=== PATIENT | male | born 1965 | race Caucasian/White ===

== ENCOUNTER 2019-06-13 23:39 | Emergency (ER) | payer OTHER, SELFPAY ==
[2019-06-13 23:44] VITALS: BP 152/87; PULSE 66; RESP 16; TEMP 36.6; O2SAT 98; BMI 36.5
--- NOTE | 2019-06-13 23:45 | ED.RN ---
NO OLD EKGS IN MUSE
--- NOTE | 2019-06-14 | EKG12_ITS ---
Test Reason : CP Blood Pressure : / mmHG Vent. Rate : 063 BPM Atrial Rate : 063 BPM P-R Int : 152 ms QRS Dur : 076 ms QT Int : 390 ms P-R-T Axes : 066 009 052 degrees QTc Int : 399 ms Normal sinus rhythm with sinus arrhythmia Septal infarct , age undetermined Abnormal ECG Confirmed by GOSIA TREJO, TATYANA ([id number]), metropolitan editor JASWANT HORVATH ([id number]) on 06/15/2019 2:41:05 PM Referred By: KAREN Confirmed By:TATYANA ELISE MD
--- NOTE | 2019-06-14 00:01 | ED.VIS.GEN ---
History of Present Illness Chief Complaint: Chest Pain Informant: Patient Narrative: Presents with chest pain. He stated that over the last 2 hours she has had some pain in the center of his chest. It was moderate in severity at home. No radiation. He had this pain yesterday and the night before as well that lasted a couple hours and went away. Tonight it has not gone away. He stated he felt some pain in his right side area yesterday and the day before and then it would go into his chest. Tonight he does not feel it on his side. He does still have his gallbladder. No history of pancreatitis. No previous abdominal surgeries. No home treatment. Patient stated he has a history of borderline hypertension and family history of early coronary artery disease. He is on no medications. He had a heart cath 2 years ago that showed no abnormalities. At that time he was having similar chest pains to what he is having today. Patient denies any PE risk factors - Past Medical History (1) Chest pain Status: Acute (2) Daytime somnolence Status: Acute (3) Puncture wound of right foot without foreign body Status: Acute (4) Snoring Status: Acute (5) History of left heart catheterization Status: Chronic Past Medical History - Allergies and Home Meds Allergies/Adverse Reactions: Allergies shellfish derived Allergy (Verified 06/13/19 23:44) Shortness of breath sulfamethoxazole [From Bactrim] Allergy (Verified 06/13/19 23:44) itching trimethoprim [From Bactrim] Allergy (Verified 06/13/19 23:44) itching Primary Care Physician: Regan James III, MD [Primary Care Provider] - Prior records reviewed: Yes Past Medical History: - - See problem list Surgical History: noncontributory Smoking Status: Never smoker Alcohol: None Drugs: None Review of Systems General: Denies: Chills, Fever, Sweats Eyes: Denies: Visual changes - bilaterally, Diplopia ENT: Denies: Rhinorrhea, Sore throat Cardiovascular: Reports: Chest pain. Denies: Palpitations Respiratory: Denies: Dyspnea, Cough, Dyspnea on exertion Gastrointestinal: Denies: Abdominal pain, Nausea, Vomiting, Diarrhea, Melena, Hematochezia Genitourinary: Denies: Dysuria, Hematuria, Frequency Musculoskeletal: Denies: Back pain, Extremity Pain Skin: Denies: Rash, Wounds Neurological: Denies: Headache, Weakness, Numbness Physical Exam Vital Signs/Narrative: Vital Signs Temp Pulse Resp BP Pulse Ox 06/13/19 23:44 97.8 F 66 16 152/87 H 98 General: Well nourished, Well developed, No Acute Distress Head: Normocephalic, Atraumatic Eyes: Perrl, EOMI ENT: Moist mucous membranes, No rhinorrhea Neck: Supple, Nontender Cardiovascular: Regular rate, Regular rhythm, No murmurs Respiratory: No distress, CTA bilaterally, Chest nontender Abdomen: Soft, Nontender, Nondistended, Normal bowel sounds Back: Nontender, Normal Inspection Extremities: Nontender, No edema Skin: Normal color, No rash Neurological: Alert, Oriented x3, Cranial nerves II-XII grossly intact, Normal Strength, Normal Sensation Psychological: Normal affect, Normal Mood Diagnostic/Tx/Re-eval - Medical Decision Making G shows sinus rhythm at a rate of 63. Q wave V2 noted. No STEMI. Lab work obtained and is unremarkable including CBC metabolic panel liver function test lipase troponin. Patient felt much better after treatment with a dose of morphine and resting comfortably. At this time he had a heart cath almost 2 years ago that was clean. I doubt this is coronary related. I do not think he has a PE or dissection. This could be gallbladder related. His liver function test however normal. I offered him a CT abdomen pelvis we like to hold off and follow-up with his family doctor for possible outpatient ultrasound of his gallbladder. I think this is reasonable. Given a dose of Percocet for home. I do not feel he needs admission ED Disposition - Plan for ED Patient: Disposition: Home or Assisted Living Diagnosis: Chest pain at rest Instructions: CHEST PAIN, NonCardiac Prescriptions: Oxycodone HCl/Acetaminophen [Percocet 5/325] 1 - 2 tab PO Q6H PRN PRN 3 Days #12 tab PRN Reason: Pain Prescription Printed Referrals: Regan James III, MD [Primary Care Provider] -
--- NOTE | 2019-06-14 00:10 | RAD_ITS ---
STUDY: X-RAY CHEST REASON FOR EXAM: Male, 53 years old. Chest pain. TECHNIQUE: 2 view chest. COMPARISON: None. FINDINGS: No apparent pneumothorax, pneumonia, pleural effusion, or edema. Cardiac silhouette, leti and mediastinal contours are within normal limits. No acute osseous abnormality. No evidence of free air under the diaphragm. RAD/Chest PA and Lateral IMPRESSION: Negative chest radiograph. Electronically Signed: Yungja Damon, at 0:37 EST Tel , Service support ,
[2019-06-14 00:11] LABS: Absolute Lymphocyte Count 2.51 X10^3/uL (0.83-4.51); Absolute Neutrophil Count 5.6 X10^3/uL (2.0-7.7); Basophil# 0.05 X10^3/uL; Basophil% 0.5 % (0-1); Eosinophil# 0.21 X10^3/uL; Eosinophils% 2.3 % (0-5); Hematocrit 44.4 % (40-54); Hemoglobin 15.1 g/dL (13.0-16.5); Lymphocyte # 2.51 X10^3/ul (4.0); Lymphocyte % 26.9 % (19-41); Mean Corpuscular Hgb 30.1 pg (27.0-32.0); Mean Corpuscular Volume 88.6 fL (80-94); Mean Platelet Vol. 8.1 fl (6.2-12.0); Monocyte# 0.92 X10^3/uL; Monocyte% 9.9 % (0-10); NRBC Flagged by Analyzer 0 % (0-5); Platelet Count 285 K/mm3 (150-450); RBC Distribution Width CV 11.8 % (11.6-14.6); RBC Distribution Width SD 37.9 fl (35.1-43.9); Red Blood Count 5.01 M/mm3 (4.6-6.2); White Blood Count 9.3 K/mm3 (4.4-11.0)
[2019-06-14] MEDS: Morphine 4 MG/ML Syringe IV (00:20)
[2019-06-14] MEDS: Aspirin 81 MG TAB.CHEW 324 MG PO (00:20)
[2019-06-14 00:28] LABS: AST(SGOT) 40 U/L (15-37); Alanine Aminotransfer ALT/SGPT 39 U/L (16-61); Albumin, Serum 3.5 g/dL (3.2-5.0); Alkaline Phosphatase 59 U/L (45-117); Anion Gap 6 (5-15); BUN 18 mg/dL (7-18); BUN/Creat Ratio 17.6 RATIO (10-20); Bilirubin, Direct 0.09 mg/dL (0.00-0.30); Calcium,Total 8.5 mg/dL (8.5-10.1); Chloride 104 mmol/L (98-107); Creatinine, Serum 1.02 mg/dL (0.70-1.30); EST Glomerular Filtration Rate 81 mL/min (>60); Est Glom Filt Rate - Afr Amer 98 mL/min (>60); Estimated Creatinine Clearance 87.47 ml/min; Globulin 3.7 g/dL (2.2-4.2); Glucose 104 mg/dL (74-106); Lipase 99 U/L (73-393); Potassium 3.8 mmol/L (3.5-5.1); Protein, Total 7.2 g/dL (6.4-8.2); Sodium Level 141 mmol/L (136-145)
[2019-06-14 00:45] VITALS: BP 151/80; PULSE 61; RESP 14; O2SAT 97
[2019-06-14 01:05] VITALS: BP 140/75; PULSE 68; RESP 16; O2SAT 98
== END 2019-06-14 01:35 | disposition home or self-care (01) ==
PROVIDERS: Emergency Provider Emergency Medicine; Family Provider Family Medicine; PCP Family Medicine
DX: R07.89 Other chest pain (principal); Z82.49 Family history of ischemic heart disease and other diseases of the circulatory system
CPT/HCPCS: 71046; 80048; 80076; 83690; 84484; 85025; 93005; 96374; 99285; A4216

== ENCOUNTER → 2019-06-15 11:49 | Outpatient (CLI) | payer OTHER, SELFPAY ==
[2019-06-13 23:44] VITALS: BMI 36.5
--- NOTE | 2019-06-15 14:15 | STRESSREP_ITS ---
Stress Test Report Date: 06-15-19 Procedure: Exercise tolerance test Indications: Chest pain Consent: Per the patient Procedure: The patient exercised on a Angel protocol for 6 minutes and 46 seconds completing stage II and 46 seconds of stage III achieving a peak heart rate of 179 bpm (106 % predicted maximal heart rate) with a peak blood pressure 178/90 mmHg and a peak MET capacity of approximately 8 MET's. The baseline ECG demonstrated normal sinus rhythm. The peak exercise ECG demonstrated with no obvious ECG changes. There was a rare PVC during exercise and recovery. The functional capacity was considered average. The patient had no complaint of chest discomfort during exercise or recovery. The examination was discontinued secondary to dyspnea. Impression: 1. Technically adequate (percent predicted maximal heart rate greater than 85%) exercise tolerance test 2. Peak exercise ECG with no obvious ECG changes 3. There was a rare PVC during exercise and recovery This note was generated with [employer] software. It may contain incorrect words, spelling, and punctuation that were not noted in checking the note before signing.
== END ==
PROVIDERS: Family Provider Family Medicine; PCP Family Medicine; Referring Provider Family Medicine; Visit Provider Family Medicine
DX: R07.9 Chest pain, unspecified (principal)
CPT/HCPCS: 93017

== ENCOUNTER 2019-06-22 10:51 | Observation (INO) | payer OTHER, SELFPAY ==
[2019-06-21 14:56] VITALS: BMI 36.5
[2019-06-21 15:45] LABS: Absolute Lymphocyte Count 1.31 X10^3/uL (0.83-4.51); Absolute Neutrophil Count 3.8 X10^3/uL (2.0-7.7); Basophil# 0.03 X10^3/uL; Basophil% 0.5 % (0-1); Eosinophil# 0.25 X10^3/uL; Eosinophils% 4.2 % (0-5); Hemoglobin 14.6 g/dL (13.0-16.5); Lymphocyte # 1.31 X10^3/ul (4.0); Lymphocyte % 22.2 % (19-41); Mean Corp Hgb Conc 32.4 g/dL (32-36); Mean Corpuscular Hgb 29.4 pg (27.0-32.0); Mean Corpuscular Volume 90.5 fL (80-94); Mean Platelet Vol. 8.4 fl (6.2-12.0); Monocyte# 0.53 X10^3/uL; NRBC Flagged by Analyzer 0 % (0-5); Neutrophil # 3.75 X10^3/uL (2.7-7.7); Neutrophil % 63.8 % (47-70); Platelet Count 301 K/mm3 (150-450); RBC Distribution Width CV 12.9 % (11.6-14.6); RBC Distribution Width SD 42.5 fl (35.1-43.9); Red Blood Count 4.97 M/mm3 (4.6-6.2); White Blood Count 5.9 K/mm3 (4.4-11.0)
[2019-06-21 16:14] LABS: ALB/GLOB Ratio 0.9 RATIO (0.9-2.4); AST(SGOT) 90 U/L (15-37); Alanine Aminotransfer ALT/SGPT 297 U/L (16-61); Albumin, Serum 3.7 g/dL (3.2-5.0); Alkaline Phosphatase 208 U/L (45-117); Anion Gap 8 (5-15); BUN 11 mg/dL (7-18); BUN/Creat Ratio 10.4 RATIO (10-20); Chloride 104 mmol/L (98-107); Creatinine, Serum 1.06 mg/dL (0.70-1.30); EST Glomerular Filtration Rate 78 mL/min (>60); Est Glom Filt Rate - Afr Amer 94 mL/min (>60); Glucose 86 mg/dL (74-106); Potassium 3.7 mmol/L (3.5-5.1); Protein, Total 7.7 g/dL (6.4-8.2); Sodium Level 139 mmol/L (136-145)
[2019-06-22] VITALS (13 sets, daily range): BP systolic 122–145; BP diastolic 71–97; PULSE 60–80; RESP 16–18; TEMP 36.5–37.2; O2SAT 93–98; BMI 34.5; BMI 34.7
--- NOTE | 2019-06-22 07:57 | PCM.HP.BLA ---
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 History and Physical Date of Admission: 06/22/19 Intake Visit Reasons: CHOLELITHIASIS, U/S @ [facility] Room Worker Required: No Is patient in pain?: Yes (ruq pain) Pain scale (1-10): 6 Allergies shellfish derived Allergy (Verified 06/21/19 16:00) Shortness of breath sulfamethoxazole [From Bactrim] Allergy (Verified 06/21/19 16:00) itching trimethoprim [From Bactrim] Allergy (Verified 06/21/19 16:00) itching Medications NK 06/21/19 [History Confirmed 06/21/19] PFSH Medical History Depression (Chronic) Surgical History Hx of cardiac catheterization (Acute) Hx of vasectomy (Resolved) Family History Mother CVA (cerebral vascular accident) Brother Myocardial infarction, Onset Age: 40 History of PTCA Father Cancer Grandmother Cancer Social History (Updated 06/21/19 @ 16:06 by Kobi James MD) Smoking Status: Never smoker alcohol intake: current alcohol intake frequency: holidays/special occasions only Alcohol type: beer, hard liquor substance use type: does not use caffeine: Yes Type: carbonated beverages what type of physical activity do you participate in: none seatbelt use: always do you feel safe at home: Yes HPI HPI HPI: ANALI BIRCH, is a 53 M who presents to the office today for HPI HPI Surgical H&P: Yes HPI: ANALI BIRCH, is a 53 M who presents to the office today for surgical consultation regarding a 8-day history of illness. 8 days ago at 10 PM he developed severe low sternal pain that radiated up to the chest. He claims that 2 years ago a very similar episode occurred. He claims that 2 years ago he was put through a cardiac work-up that was unremarkable. He states that on this occasion he again went through a cardiac work-up. He states that that was not remarkable. He states that over the weekend he has had difficulty obtaining a clear urine stating that it looks very dark. On June 14, 2019 through the [facility] he had a gallbladder ultrasound done. This suggested that the common bile duct was borderline enlarged at 0.6 cm. The gallbladder had multiple gallstones including one in the neck which was up to 9 mm. The gallbladder wall was 3 mm. There is no pericholecystic fluid. June 15, 2019 exercise stress test was negative for acute ischemia. The patient states that he is felt poorly now for the entire past 8 days. He does not think that he has had a fever. He still has nondescript discomfort. Anorexia. ROS General General: No weight change, appetite, fatigue, colon cancer, breast cancer or weakness HEENT HEENT: No difficulty swallowing, eye injury, eye surgery, swollen glands or hoarseness Endo Endocrine: No thyroid disease, diabetes mellitus, thyroid cancer, Hair loss, heat intolerance or cold intolerance Skin Skin: No rash or changing moles Breast Breast: No left breast lump, right breast lump, nipple discharge, breast pain, abnormal mammogram, abnormal US or breast enlargement Musc Musculoskeletal: No back problems, arthritis, rheumatoid arthritis, gout or joint pain Cardio Cardiovascular: No murmur, pacemaker, heart disease, atrial fibrillation, high blood pressure, heart attack, heart stent, palpitations, shortness of breat with exertion or chest pain Psych Psychiatric: Yes depression; no anxiety or hearing voices Resp Respiratory: No shortness of breath, No sleep apnea, No cough, No COPD, No asthma, No emphysema, No wheezing Gastro Gastrointestinal: No abdominal pain, No nausea or vomiting, No diarrhea, No constipation, No blood in stool, No acid reflux, No hemorrhoids, No ulcers, Yes gallbladder problem, No black,tarry stools Johann Hematologic: No blood thinners, No blood disorders, No bleeding, No anemia, No blood clots Neuro Neurologic: No system reviewed and no additional complaints, except as docu, No as per HPI, No abnormal walking, No abnormal hearing, No abnormal movements, No abnormal speech, No behavioral changes, No burning sensations, No confusion, No seizure-like activity, No unsteadiness, No dizziness, No localized weakness, No frequent falls, No headache(s), No lack of coordination, No loss of vision, No memory loss, No numbness, No other visual disturbances, No radiating pain, No restless legs, No sensory deficit, No fainting, No tingling, No tremor(s), No weakness, No other Exam Const General: cooperative, no acute distress Nutritional Appearance: obese Orientation: alert, awake HENMT Head: normal to inspection Chest Breast Palpation: No nipple discharge Resp Effort & Inspection: normal respiratory effort Auscultation: clear to auscultation bilaterally Cardio Rate: regular rate Rhythm: regular rhythm Heart Sounds: no murmurs GI Palpation: soft, no hepatosplenomegaly Auscultation: normal bowel sounds Skin General: no rashes or lesions noted Neuro Cognition: normal cognition Extrem General: no calf tenderness bilaterally Psych Affect: normal affect Assessment & Plan Problems 1. Calculus of gallbladder with chronic cholecystitis without obstruction K80.10 Plan 53-year-old gentleman. He notes poor appetite and very dark-colored urine. He has been ill now for 8 days. I have concerns that he has a day-old chronic cholecystitis cholelithiasis with the potential for choledocholithiasis. I am proposing for him that we obtain stat laboratory today. I am recommending to him a laparoscopic cholecystectomy with intraoperative cholangiography and possible laparoscopic common bile duct exploration if indicated. I discussed the technique, benefits, risks, alternatives. He has had an opportunity to ask and have questions answered. Because of his ongoing illness we will try to add him to our scheduling tomorrow to facilitate his care. I appreciate the opportunity of assisting with the surgical management CC: Dr. Regan James, [facility] Kobi James M.D., F.A.C.S. Orders Orders: Comprehensive Metabolic Profil 06/22/19 Z01.818 CBC W/Diff, Automated 06/22/19 Z01.818 Coding Level of Care Code 49397 Diagnoses Calculus of gallbladder with chronic cholecystitis without obstruction K80.10 ??Cholelithiasis location: gallbladder ??Biliary obstruction: without biliary obstruction 06/21/19 1607 <Electronically signed by Kobi James MD> Date Kobi James MD Cosigner Signature: Date (if applicable) CC: Regan James III, MD ~ Laboratory demonstrates findings completely consistent with choledocholithiasis. The patient is aware that they plan to proceed with a laparoscopic cholecystectomy with cholangiograms anticipate likely proceeding with a laparoscopic common bile duct exploration. He has had an opportunity to ask and have questions answered. We will proceed as noted
[2019-06-22] MEDS: Lactated Ringers 1,000 ML 100 ML IV ×4 (07:59→20:59)
[2019-06-22] MEDS: Hydrocortisone Sod Succinate 100 MG/2 ML Vial IV (08:01)
--- NOTE | 2019-06-22 08:41 | EKG12_ITS ---
Test Reason : PRE OP Blood Pressure : / mmHG Vent. Rate : 054 BPM Atrial Rate : 054 BPM P-R Int : 156 ms QRS Dur : 088 ms QT Int : 422 ms P-R-T Axes : 055 010 013 degrees QTc Int : 400 ms Sinus bradycardia Otherwise normal ECG Confirmed by MARY LOU TREJO, MARGUERITE ([id number]), online editor JASWANT HORVATH ([id number]) on 06/23/2019 2:34:09 PM Referred By: Kobi James Confirmed By:MARGUERITE BARRETO MD
--- NOTE | 2019-06-22 10:00 | RAD_ITS ---
STUDY: INTRAOPERATIVE CHOLANGIOGRAM. REASON FOR EXAM: Male, 53 years old. Laparoscopic cholecystectomy. FLUOROSCOPY TIME (if supplied): ( 2 minutes and 32 seconds ) minutes/seconds. 16 images in a cine loop were obtained. TECHNIQUE: An intraoperative Cholangiogram was performed by the surgeon. Imaging was submitted. COMPARISON: None. FINDINGS: A filling defect is seen in the distal portion of the common bile duct suggestive of choledocholithiasis. Mild dilatation of the proximal common bile duct. Following manipulation, the distal common bile duct stone was removed. RAD/Cholangiogram/ O R,Initial IMPRESSION: Stone in the distal portion of the common bile duct with removal with balloon catheter. Electronically Signed: Carlos Hare, at 14:40 EST , Service support ,
--- NOTE | 2019-06-22 10:40 | HERN_PTH ---
PATIENT: ANALI BIRCH Jr. LOC: MS3 U#:[id number] AGE/SX: 53/M ROOM: MS318 RE06/22/[address]: Dr. Kobi James MD : 1965 BED: 1 DIS: 06/23/2019 SPEC #: [id number] RECD: 06/22/19 15:11 STATUS: ADILENE LR #: [id number] VENTURA: 06/22/19 10:[address]: Kobi James DEPT: SURGICAL PATHOLOGY RECD BY: Simon Gonsalez ENTERED: 06/23/19 11:58 SP TYPE: Hernia OTHR DR: Dr. Regan James III, MD Tissues: A - HERNIA B - Gallbladder, NOS Procedures: Surgery Specimen Level II Surgery Specimen Level III HEADER OPERATION: Laparoscopic cholecystectomy with common bile duct exploration PRE-OP DIAGNOSIS: Calculus of gallbladder with chronic cholecystitis TISSUE SUBMITTED: A - Hernia sac and contents, B - Gallbladder MICROSCOPIC DIAGNOSIS A. Hernia sac, herniorrhaphy: Mature fibrofatty tissue consistent with hernia sac and contents. B. Gallbladder, cholecystectomy: Cholesterolosis, chronic cholecystitis and cholelithiasis. AM:colt 06/24/19 MICROSCOPIC DESCRIPTION Slides are reviewed. GROSS DESCRIPTION A - Received in fixative is one container labeled with the patient's name and designated hernia sac and contents. The specimen consists of two irregular fragments of yellow fatty tissue that in aggregate measure 3 x 2.5 x 1 cm. Sections do not reveal mass lesions. Bundling Machine Operator sections are submitted in one cassette. B - Received is one container labeled with the patient's name and designated gallbladder. The specimen consists of a gallbladder measuring 8 x 2.2 x 1.5 cm. The external surface is smooth and glistening. Focally, it is granular, hemorrhagic and contains cautery artifact. The lumen of the gallbladder contains yellow-green mucoid bile and multiple calculi and fragments of chalky yellow calculi ranging in size from 0.5 to 0.8 cm. The mucosa is bile-stained and without any mass lesions. The gallbladder wall averages 0.3 cm in thickness and is free of mass lesions. Bundling Machine Operator sections of the gallbladder and the cystic duct are submitted in one cassette. / AM:colt 06/23/19 TC:3 CPT: 65026, 37004
--- NOTE | 2019-06-22 10:48 | DCINST_ITS ---
Discharge Diet: Light diet - advance as tolerated - if you have questions about your diet instructions, please talk to you doctor. Discharge Activity: May Not Drive - for 5-7 days or while taking narcotic pain medicine. May shower in (days): 1 Lifting Restrictions: 10 pounds Call your doctor if your incision/area has: Continuous Slow Oozing, Sudden Increased Bleeding, Increased Pain/ Swelling, Increased Redness, Foul Smelling Discharge Call your doctor if you observe: Fever of 101 or Higher Suture Line Care: Avoid Pulling/Pushing, Avoid Pinching/Bending Additional Dressing/Incision Instructions:: Change or remove dressing in 4 days. Leave steri-strips in place for 1 week. Allergies/Adverse Reactions: Allergies shellfish derived Allergy (Verified 06/22/19 07:41) Shortness of breath sulfamethoxazole [From Bactrim] Allergy (Verified 06/22/19 07:41) itching trimethoprim [From Bactrim] Allergy (Verified 06/22/19 07:41) itching Medications to take at Discharge NK 06/21/19 Primary Care Physician: Regan James III, MD [Primary Care Provider] - Test Results: Test results from this visit will be discussed in further detail at your follow- up appointment, if applicable. Please Follow Up With: Kobi James MD - [phone] When: Call to make an appointment to be seen in about 10 days.
[2019-06-22] MEDS: Cefazolin 2 GM in 0.9% Normal Saline 100 ML IV (10:51)
--- NOTE | 2019-06-22 13:20 | PCM.OPRPT ---
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 Report of Operation Date of Procedure: 06/22/19 Pre-Operative Diagnosis: Chronic cholecystitis cholelithiasis and choledocholithiasis with obstruction Post-Operative Diagnosis: Chronic cholecystitis, cholelithiasis, choledocholithiasis with obstruction. Umbilical hernia Surgery/Procedure Performed:: Laparoscopic cholecystectomy with intraoperative cholangiography and laparoscopic common bile duct exploration. Umbilical herniorrhaphy Description of Surgical Findings:: Timeout and informed consent was obtained. 53-year-old gent was taken out from placement table underwent general endotracheal intubation anesthesia. Ancef 2 g given intravenously preoperatively. The abdomen sterilely prepped and draped. 0.5% Marcaine was used as local anesthetic. Throughout the procedure total 30 cc was used skin sites were pre-anesthetized. The patient had a obvious umbilical hernia. A curvilinear incision was made the inferior part portion of the umbilicus sharp and blunt dissection was used to identify the preperitoneal tissue and umbilical hernia and sac. This was dissected free with electrocautery and submitted the specimen. Holding sutures of 0 Vicryl placed. Varies needle inserted. The abdomen was insufflated with CO2 to pressure of 10 minutes mercury pressure. Vivian trocar inserted. No evidence of any trocar injuries. Interposition 5 Bradford ports were placed in the epigastric mid abdomen right upper quadrant. The gallbladder was markedly distended. It had to be trocar aspirated and decompressed. It was then distracted. Tedious blunt dissection was instituted the infundibulum. This area was very thickened. Were needed hemostasis obtained with hemoclips. The cystic artery was identified clipped twice proximally once distally prior to transecting it. The infundibular the gallbladder was dissected free could not get clean unobstructed view of the cystic duct. While still in the infundibular area and made an incision in the infundibulum and through a 14-gauge Angiocath advanced clench Rickey catheter. Angiograms Were obtained demonstrating what was felt to be about a 6 mm stone in the distal common bile duct. I then exchanged out for a 5 Setswana sheath instead of the cholangiogram Angiocath. I placed a double-lumen irrigating cholangiogram catheter and fluoroscopic was able to get a 035 Glidewire into the duodenum. I then placed a 6 x 40 mm balloon and performed balloon angioplasty of the ampulla under fluoroscopic control. I then vigorously irrigated the duct. This was guided by imaging. Were needed I used the double-lumen catheter to try to help advance final debris into the duodenum. The final images demonstrate that there appeared to be no further stone debris. The 6 m stone that was there previously and had become partly disrupted by the ballooning was now seemingly gone. There was free flow into the small bowel. No apparent adverse effect. Catheters were removed. I placed 2-0 PDS Endoloops for the infundibular area of the gallbladder and secured that. I had amputated the gallbladder prior to that secured the gallbladder and with a extra-large Hem-o-sangeetha clip. I dissected free the gallbladder from the liver and then placed the gallbladder retrieval bag. The right upper quadrant was irrigated and aspirated free of excess fluid. The Endoloops were in good position. The liver bed was hemostatic. The gallbladder was removed at the umbilicus. Remaining trochars removed. The umbilical hernia was closed transversely with multiple simple sutures of 0 Nurolon. Skin edges proximal interrupted 4 Monocryl subdermal stitches. Steri-Strips Telfa and OpSite dressings applied. Sponge and instrument and needle counts reported the surgeon be correct. Specimen includes hernia sac and gallbladder. Drains none. Blood loss minimal. He was taken to the recovery room in satisfactory condition. Admission for at least observation is scheduled. Kobi James M.D., F.A.C.S. Type of Anesthesia:: General Anesthesiologist: Aletha Mensah
[2019-06-22] MEDS: Bupivacaine Mpf 0.5% 30 ML VIAL (13:27)
[2019-06-22] MEDS: Morphine 4 MG/ML Syringe IV ×2 (18:11→20:57)
--- NOTE | 2019-06-23 01:19 | NURSING ---
Addendum entered by Lala Hartmann 06/23/19 02:55: 0255 Patient ambulated one lap around unit with EDGE INKER UPPERS. Tolerated well. Original Note: 2200 Patient ambulated two laps around the unit with EDGE INKER UPPERS. Tolerated well.
[2019-06-23 02:37] VITALS: BP 110/55; PULSE 63; RESP 18; TEMP 36.8; O2SAT 94
[2019-06-23 05:02] LABS: Absolute Lymphocyte Count 0.91 X10^3/uL (0.83-4.51); Absolute Neutrophil Count 8.1 X10^3/uL (2.0-7.7); Basophil# 0.01 X10^3/uL; Basophil% 0.1 % (0-1); Eosinophil# 0.01 X10^3/uL; Eosinophils% 0.1 % (0-5); Hematocrit 37.9 % (40-54); Hemoglobin 12.5 g/dL (13.0-16.5); Lymphocyte # 0.91 X10^3/ul (4.0); Lymphocyte % 9.3 % (19-41); Mean Corpuscular Hgb 30.2 pg (27.0-32.0); Mean Corpuscular Volume 91.5 fL (80-94); Mean Platelet Vol. 8.6 fl (6.2-12.0); Monocyte# 0.68 X10^3/uL; NRBC Flagged by Analyzer 0 % (0-5); Neutrophil # 8.12 X10^3/uL (2.7-7.7); Neutrophil % 83.1 % (47-70); Platelet Count 272 K/mm3 (150-450); RBC Distribution Width CV 13.2 % (11.6-14.6); RBC Distribution Width SD 44.1 fl (35.1-43.9); Red Blood Count 4.14 M/mm3 (4.6-6.2); White Blood Count 9.8 K/mm3 (4.4-11.0)
[2019-06-23 05:20] LABS: ALB/GLOB Ratio 0.8 RATIO (0.9-2.4); AST(SGOT) 62 U/L (15-37); Alanine Aminotransfer ALT/SGPT 189 U/L (16-61); Albumin, Serum 2.7 g/dL (3.2-5.0); Alkaline Phosphatase 153 U/L (45-117); Anion Gap 9 (5-15); BUN 12 mg/dL (7-18); BUN/Creat Ratio 13.1 RATIO (10-20); Calcium,Total 7.8 mg/dL (8.5-10.1); Chloride 104 mmol/L (98-107); Creatinine, Serum 0.91 mg/dL (0.70-1.30); EST Glomerular Filtration Rate 92 mL/min (>60); Est Glom Filt Rate - Afr Amer 112 mL/min (>60); Estimated Creatinine Clearance 98.05 ml/min; Globulin 3.3 g/dL (2.2-4.2); Glucose 110 mg/dL (74-106); Lipase 93 U/L (73-393); Potassium 3.4 mmol/L (3.5-5.1); Sodium Level 139 mmol/L (136-145)
--- NOTE | 2019-06-23 05:57 | PN.SURG_ITS ---
Subjective: Sore at umbilicus but now passing flatus - Physical Exam Vitals/I&O's: Vital Signs Temp Pulse Resp BP Pulse Ox 98.3 F 63 18 110/55 L 94 06/23/19 02:37 06/23/19 02:37 06/23/19 02:37 06/23/19 02:37 06/23/19 02:37 Oxygen Delivery Method Room Air Weight: 241 lb 10.026 oz Body Mass Index (BMI) 34.7 Intake and Output for Last 24 Hours 06/21/19 06/22/19 06/23/19 23:59 23:59 23:59 Intake Total 3736.67 / 4136.67 1000 / 1000 Output Total 400 / 1100 1100 / 1100 Balance 3336.67 / 3036.67 -100 / -100 Abdomen: Bowel Sounds Present, Soft, Distended - wounds clean Laboratory Results 06/23/19 04:50: WBC 9.8, RBC 4.14 L, Hgb 12.5 L, Hct 37.9 L, MCV 91.5, MCH 30.2, MCHC 33.0, RDW Std Deviation 44.1 H, RDW Coeff of Jose Enrique 13.2, Plt Count 272, MPV 8.6, Immature Gran % (Auto) 0.400, Neut % (Auto) 83.1 H, Lymph % (Auto) 9.3 L, [place] % (Auto) 7.0, Eos % (Auto) 0.1, Baso % (Auto) 0.1, Absolute Neuts (auto) 8.1 H, Absolute Lymphs (auto) 0.91, Nucleated RBC % 0 06/23/19 04:50: Sodium 139, Potassium 3.4 L, Chloride 104, Carbon Dioxide 26.0, Anion Gap 9, BUN 12, Creatinine 0.91, Estim Creat Clear Calc 98.05, Est GFR (MDRD) Af Amer 112, Est GFR (MDRD) Non-Af 92, BUN/Creatinine Ratio 13.1, Glucose 110 H, Calcium 7.8 L, Total Bilirubin 3.10 H, AST 62 H, ALT 189 H, Alkaline Phosphatase 153 H, Total Protein 6.0 L, Albumin 2.7 L, Globulin 3.3, Albumin/Globulin Ratio 0.8 L, Lipase 93 Current Medications Acetaminophen (Tylenol) 650 mg PO Q6H PRN PRN PRN Reason: pain Hydrocodone Bitart/Acetaminophen ([place] 5mg-325mg) 1 - 2 tablet PO Q4H PRN PRN PRN Reason: PAIN Lactated Ringer's () 1,000 mls @ 100 mls/hr IV .Q10H CIERRA Last Admin: 06/22/19 20:59 Dose: 100 mls/hr Documented by: Sodium Chloride () 250 mls @ 15 mls/hr IV .[id number] PRN PRN Reason: Saline Flush Morphine Sulfate () 2 - 4 mg IV Q1H PRN PRN PRN Reason: PAIN Morphine Sulfate () 2 - 4 mg IV Q1H PRN PRN Last Admin: 06/22/19 20:57 Dose: 4 mg Documented by: Ondansetron HCl (Zofran) 4 mg IV Q8H PRN PRN PRN Reason: Nausea Sodium Chloride () 10 - 40 ml IV UD PRN PRN Reason: SALINE FLUSH Medical Necessity - Tobacco Use Smoking Status: Never smoker Tobacco Use: Non-smoker Assessment/Plan All Active Problems (Last Reviewed 06/21/19 @ 14:53 by Jeanie Hernandez) Puncture wound of right foot without foreign body (Acute) Snoring (Acute) Daytime somnolence (Acute) Chest pain (Acute) Will initiate fulls and discharge pt this a.m. LFTs improved Lipase normal
[2019-06-23] MEDS: Lactated Ringers 1,000 ML 100 ML IV (06:46)
[2019-06-23 11:18] VITALS: BP 117/56; PULSE 61; RESP 18; TEMP 36.8; O2SAT 98
== END 2019-06-23 11:45 | disposition home or self-care (01) ==
LOC: MS3 06-23 08:30
PROVIDERS: Admitting Provider Surgery; Family Provider Family Medicine; PCP Family Medicine; Referring Provider Surgery; Visit Provider Surgery
PROC: (CPT 47610; principal; 2019-06-22 10:20)
DX: K80.63 Calculus of gallbladder and bile duct with acute cholecystitis with obstruction (principal); R00.1 Bradycardia, unspecified; K42.9 Umbilical hernia without obstruction or gangrene; I27.20 Pulmonary hypertension, unspecified
CPT/HCPCS: 47564; 49585; 36415; 74300; 76000; 80053; 83690; 85025; 88302; 88304; 93005; 94762; 96361; 96374; 96376; 99218; 99251; J7120; C1725; C1769; G0378; G0379; G0463; J1610; J2405

== ENCOUNTER 2024-05-11 06:46 | Emergency (ER) | payer BC, SELFPAY ==
[2024-05-11 06:46] VITALS: BP 148/87; PULSE 68; RESP 16; TEMP 36.4; O2SAT 99; BMI 37.5
[2024-05-11] MEDS: morphine 10 MG/ML Syringe IM (07:22)
[2024-05-11] MEDS: Ondansetron 8 MG Tablet PO (07:23)
--- NOTE | 2024-05-11 07:24 | ED.VIS.BACK ---
HPI History of Present Illness Chief Complaint: Back Informant: patient and spouse/S.O. Onset/Context/Timing Onset: Weeks Context: Gradual Onset Injury: repetitive motion Timing: Continuous Quality: Sharp Location: Lumbar and Right Leg Current Severity: Moderate Maximum Severity: Moderate Worsened by: improves with Movement Relieved by: Remaining Still Associated Symptoms Associated Symptoms: Tingling and Radiation to Right Leg; Negative for Dysuria, Unable to Ambulate, Unable to Transfer, Urinary Retention, Constipation or Fecal Incontinence Narrative Narrative: 58-year-old male history of hypertension. Was hoping someone do [employer] posts 2 weeks ago. Since that time has had lower back pain with pain radiating and tingling behind his right leg. Has had a history of sciatica in the past. He is never had back surgery. Denies any fall injury or trauma otherwise. No fever. No weakness to his lower extremities. No bowel or bladder incontinence. No fever. He has had symptoms like this before just not as severe or as long. Prior similar symptoms: Yes Recent Illness/Hospitalization: No PFSH PFSH Medical History Cholelithiasis with chronic cholecystitis Depression Home Medications ?Medication ?Instructions ?Recorded ?Last Taken ?Type lisinopril 30 mg tablet 30 mg PO DAILY 05/11/24 Unknown History methylprednisolone 4 mg tablet See Rx Instructions .Route 05/11/24 Unknown Rx (Medrol) .COMPLEX #40 tabs multivitamin 1 tab PO DAILY 05/11/24 Unknown History oxycodone-acetaminophen 5 mg-325 1 tab PO Q4H PRN pain 5 days #20 05/11/24 Unknown Rx mg tablet (Percocet) tabs vitamin B complex (Complex B-100 1 tab PO DAILY 05/11/24 Unknown History tablet,extended release) Allergy/AdvReac Type Severity Reaction Status Date / Time shellfish derived Allergy Shortness Verified 05/11/24 06:47 of breath sulfamethoxazole (From Allergy itching Verified 05/11/24 06:47 Bactrim) trimethoprim (From Bactrim) Allergy itching Verified 05/11/24 06:47 Family History Mother CVA (cerebral vascular accident) Brother Myocardial infarction, Onset Age: 40 History of PTCA Father Cancer Grandmother Cancer Surgical History s/p umbilical herniorrhaphy (~06/22/19) S/P laparoscopic cholecystectomy (~06/22/19) Hx of cardiac catheterization Hx of vasectomy Social History Smoking Status: Never smoker alcohol intake: current alcohol intake frequency: holidays/special occasions only Alcohol type: beer and hard liquor substance use type: does not use caffeine: Yes Type: carbonated beverages what type of physical activity do you participate in: none seatbelt use: always do you feel safe at home: Yes ROS ROS ED ROS Narrative Lower back pain. Constitutional Constitutional ED: Denies chills or fever(s) Eyes Eyes: Denies blurry vision ENT ENT ED: Denies ear pain Cardiovascular Cardiovascular: Denies chest pain Respiratory/Chest Respiratory/Chest: Denies dyspnea Gastrointestinal Gastrointestinal: Denies abdominal pain Genitourinary Genitourinary ED: Denies dysuria Musculoskeletal Musculoskeletal: Reports back pain; Denies arthralgias Integumentary Denies abscess Neurologic Neurologic: Denies headache(s) Psychiatric Psychiatric: Denies anxiety Endocrine Endocrinology: Denies cold intolerance Hematologic/Lymphatic Hematologic/Lymphatic: Denies easy bleeding Allergic/Immunologic Allergic/Immunologic ED: Denies mouth swelling EXAM Physical Exam Narrative Exam Narrative: 58-year-old male lying in bed. at bedside. Vital signs stable afebrile. H EENT exam unremarkable. Neck nontender. Lungs clear to auscultation. Heart regular rate and rhythm no murmur rate about 70. Chest wall ribs nontender. Abdomen soft nontender. Moving all 4 extremities. Neurovascularly intact. Lower extremities he has normal medial thigh sensation. Normal dorsi plantarflexion. Positive straight leg raise on the right at about 30 degrees. He has 5 out of 5 motor strength. Normal sensation. Again no cauda equina. Back is tenderness along his lower back primarily over L4-5 vertebrae and right sciatic notch. Patient is awake and alert. Normal sensation and strength. Const Vital Signs: 05/11/24 06:46 Temperature 97.5 F L Temperature Source Temporal Pulse Rate 68 Respiratory Rate 16 Blood Pressure 148/87 H Blood Pressure Mean 107 Pulse Ox 99 Positive well nourished and well developed; Negative for cachectic, contractures or unkempt General Appearance ED: well developed and NAD; Negative for unkempt, cachectic or contractures Nutritional Appearance: Negative for cachectic HEENT Reports moist mucous membranes Negative for trauma or tenderness Eyes PERRL and EOMs intact bilaterally General Eye ED: Negative for pale conjunctiva Neck no lymphadenopathy, supple and no JVD General: Negative for tenderness Thyroid: Negative for other Resp normal respiratory effort and clear to auscultation bilaterally Effort and Inspection: Negative for pain with movement Auscultation: Negative for rales, rhonchi, wheezes or diminished lung sounds Cardio regular rate, regular rhythm, S1 normal heart sound, S2 normal heart sound and no murmurs Palpation: Negative for palpable S3 Rate: Negative for bradycardia or tachycardic Rhythm: Negative for abnormal rhythm Bruits: Negative for other GI normal to inspection, nondistended, normoactive bowel sounds, soft to palpation, non-tender, non-distended and no masses Inspection: Negative for abdominal distention Palpation: Negative for tender or guarding Back/Spine normal to inspection and no thoracic nor lumbar tenderness Back/Spine Narrative: Tenderness along the paralumbar soft tissue. Right sciatic notch. L4-5 lumbar spine. No trauma. No redness or warmth. No bruising. General Back: Negative for CVA tenderness Cervical Spine: Negative for cervical spine tenderness Thoracic Spine / Upper Back: Negative for paraspinal muscle tenderness Extremity normal to inspection and no clubbing, cyanosis or edema General Extremety ED: Negative for edema or tenderness General Extremity: Negative for edema Neuro oriented x3 and no sensory deficits noted Sensorium / Orientation: alert; Negative for confused, lethargic or stuporous Motor Exam: strength 5/5 throughout Psych mental status grossly normal Appearance: Negative for unkempt Attitude: No agitated Mood & Affect: Negative for depressed Skin no rashes or lesions noted and no wounds General Skin Exam: Negative for jaundice Lesions: No lesion noted Rashes: No rashes noted Trauma: Negative for abrasion or puncture Wounds: Negative for wounds noted MDM MDM MDM Narrative Medical decision making narrative: 58-year-old male lumbar back pain radiation to his right leg either lumbar disc or sciatica. Treated with IM morphine and p.o. Zofran. Started on Medrol Dosepak. Outpatient follow-up if not improving he may need advanced imaging such as an MRI. He may need physical therapy. Currently there is no signs of cauda equina. History & Record Review Discussion w/independent historian: Patient and Family Additional record(s) reviewed:: Prior inpatient record, Prior outpatient record, Prior ED visit and Prior labs Discharge Plan Triage Chief Complaint: Back ED Provider: Ismael Mckinley Dx/Rx/DC Orders Clinical Impression: Sciatica Instructions: ED Back Pain (Acute or Chronic), ED Sciatica Prescriptions: New methylprednisolone [Medrol] 4 mg tablet See Rx Instructions .ROUTE .COMPLEX Qty: 40 0RF Rx Instructions: 4 mg orally ;Take 32 mg or 8 tablets the first day. Take 7 tablets of the 28 mg a second day. Take 6 tablets or 24 mg the third day.Take 5 tablets or 20 mg a day four. Take 16 mg or 4 tablets days 5 and 6. Take 8 mg or 2 tablets days 7 and 8. Take 4 mg or 1 tablet days 9 and 10 and then you are finished. oxycodone-acetaminophen [Percocet] 5-325 mg tablet 1 tab PO Q4H PRN (Reason: pain) 5 Days Qty: 20 0RF No Action lisinopril 30 mg tablet 30 mg PO DAILY Complex B-100 Tablet Extended Release 1 tab PO DAILY multivitamin Tablet 1 tab PO DAILY Primary Care Provider: Venice Ruano Referrals: Venice Ruano NP-C [Primary Care Provider] - 1 Week if not improving Activity Restrictions/Additional Instructions: Hot shower warm bath to relax the muscles. Massage. This is either a lumbar disc pushing on a nerve or sciatica. If not improving need to follow-up with your doctor or nurse practitioner for further evaluation. If not improving may need undergo physical therapy and/or obtain an MRI of your lumbar spine. We will place you on a course of tapering steroids a Medrol Dosepak which should decrease inflammation in your back and help with the pain. Also the pain medication Percocet. Do not take an additional Motrin or ibuprofen because the steroid is an anti-inflammatory. Return to the emergency department if increasing pain, leg weakness, bowel or bladder incontinence or fever. Print Language: Greek Disposition Disposition: Home, Self Care
[2024-05-11] MEDS: MethylPREDNISolone 4 MG Tablet 32 MG PO (07:43)
[2024-05-11 07:53] VITALS: BP 139/84; PULSE 86; RESP 15; TEMP 36.4; O2SAT 99
== END 2024-05-11 07:54 | disposition home or self-care (01) ==
PROVIDERS: Emergency Provider Emergency Medicine; PCP Nurse Practitioner Family; Visit Provider Emergency Medicine
DX: M54.30 Sciatica, unspecified side (principal); I10 Essential (primary) hypertension; Z79.899 Other long term (current) drug therapy
CPT/HCPCS: 96372; 99283

== ENCOUNTER 2024-05-21 14:01 | Emergency (ER) | payer BC, SELFPAY ==
[2024-05-21 14:03] VITALS: BP 159/87; PULSE 85; RESP 18; TEMP 35.8; O2SAT 100; BMI 36.6
--- NOTE | 2024-05-21 16:31 | ED.RN ---
pt stated he would no longer like to wait in waiting room. understanding but would not like to keep waiting.
== END 2024-05-21 16:30 | disposition left against medical advice (07) ==
LOC: ED 16:42
PROVIDERS: PCP Nurse Practitioner Family
DX: Z53.21 Procedure and treatment not carried out due to patient leaving prior to being seen by health care provider (principal)

== ENCOUNTER 2024-11-02 17:42 | Emergency (ER) | payer BC, SELFPAY ==
[2024-11-02 17:42] VITALS: BP 177/86; PULSE 101; RESP 16; TEMP 37; O2SAT 98; BMI 39.9
--- NOTE | 2024-11-02 19:09 | EDS_ITS ---
HPI HPI - GI History of Present Illness Chief Complaint: Abd Pain Informant: patient Abdominal Pain/Flank Pain Onset: Days (455) Context: Gradual Onset Timing: Continuous Quality: Aching and Stabbing (At times) Location: Epigastric, RUQ and LUQ Worsened by: Food Relieved by: Nothing Nausea/Vomiting/Emesis GI Symptom: Positive for Nausea; Negative for Vomiting Diarrhea/Melena/Hematochezia GI Symptom: Positive for Diarrhea; Negative for Melena or Hematochezia Associated Symptoms Associated Symptoms: Negative for Dysuria, Frequency or Hematuria Narrative Narrative: Patient presents with abdominal pain that has been getting worse over the past 4 to 5 days. Patient states it is constant but waxes and wanes. Patient describes it as constant aching but stabbing in time. Patient states the pain is mainly over the upper abdomen and worse in the epigastric area. Patient states the pain is worse with eating. Patient states nothing makes it better. Patient admits to some nausea but denies any vomiting. Patient admits to some intermittent diarrhea. Patient denies any melena or hematochezia. Patient denies any urinary complaints. Patient denies any radiation into his back. [facility] Medical History (Updated 11/02/24 @ 23:[address] Jon Valdivia, DO) Hypertension Cholelithiasis with chronic cholecystitis Depression Home Medications ?Medication ?Instructions ?Recorded ?Last Taken ?Type lisinopril 30 mg tablet 30 mg PO DAILY 05/11/24 Unkn own History methylprednisolone 4 mg tablet See Rx Instructions .Ro elim ira 05/11/24 Unknown Rx (Medrol) .COMPLEX #40 tabs multivitamin 1 tab PO DAILY 05/11/24 Unkn own History vitamin B complex (Complex B-100 1 tab PO DAILY Unknown History tablet,extended release) oxycodone-acetaminophen 5 mg-325 1 tab PO Q6H PRN PRN pain 3 days 11/02/24 Unknown Rx mg tablet (Percocet) #12 tabs Allergy/AdvReac Type Severity Reaction Status Date / Time shellfish derived Allergy Shortness Verified 11/02/24 17:43 of breath sulfamethoxazole (From Allergy itching Verified 11/02/24 17:43 Bactrim) trimethoprim (From Bactrim) Allergy itching Verified 11/02/24 17:43 Family History Mother CVA (cerebral vascular accident) Brother Myocardial infarction, Onset Age: 40 History of PTCA Father Cancer Grandmother Cancer Surgical History s/p umbilical herniorrhaphy (~06/22/19) S/P laparoscopic cholecystectomy (~06/22/19) Hx of cardiac catheterization Hx of vasectomy Social History Smoking Status: Never smoker alcohol intake: current alcohol intake frequency: holidays/special occasions only Alcohol type: beer and hard liquor substance use type: does not use caffeine: Yes Type: carbonated beverages what type of physical activity do you participate in: none seatbelt use: always do you feel safe at home: Yes ROS ROS ED Constitutional Constitutional ED: Reports chills and subjective; Denies fever(s) Eyes Eyes: Denies blurry vision or change in vision ENT ENT ED: Denies rhinorrhea or sore throat Cardiovascular Cardiovascular: Denies chest pain or palpitations Respiratory/Chest Respiratory/Chest: Reports dyspnea; Denies cough Gastrointestinal Gastrointestinal: Reports abdominal pain, diarrhea and nausea; Denies vomiting Genitourinary Genitourinary ED: Denies dysuria or hematuria Musculoskeletal Musculoskeletal: Denies back pain or neck pain Integumentary Reports rash; Denies abscess Neurologic Neurologic: Reports headache(s); Denies weakness Allergic/Immunologic Allergic/Immunologic ED: Denies mouth swelling or urticaria EXAM Physical Exam Const Vital Signs: 11/02/24 17:42 11/02/24 19:42 11/02/24 21:39 Temperature 98.6 F Temperature Source Oral Pulse Rate 101 H 80 83 Respiratory Rate 16 18 12 Blood Pressure 177/86 H 133/71 H 112/65 Blood Pressure Mean 116 91 80 Pulse Ox 98 97 97 Oxygen Delivery Method Room Air Room Air Room Air 11/02/24 22:36 Temperature 98.2 F Temperature Source Pulse Rate 96 Respiratory Rate 18 Blood Pressure 111/65 Blood Pressure Mean 80 Pulse Ox 99 Oxygen Delivery Method Positive well nourished and well developed General Appearance ED: well developed and NAD HEENT Reports moist mucous membranes Neck supple and no JVD Resp normal respiratory effort and clear to auscultation bilaterally Cardio regular rate and regular rhythm GI non-distended Palpation: soft and tender epigastric, LUQ and RUQ; Negative for guarding or rebound tenderness present Neuro CN's II-XII intact bilaterally, moves all extremities and no sensory deficits noted Sensorium / Orientation: alert Motor Exam: strength 5/5 throughout Psych mental status grossly normal and thought process normal MDM MDM MDM Narrative Medical decision making narrative: Differential diagnosis includes peptic ulcer disease, duodenal ulcer, pancreatitis, gastritis, choledocholithiasis, colitis, and viral illness. CBC will be obtained to assess for leukocytosis and anemia. Comprehensive metabolic profile will be obtained to assess for hepatic function, renal function, and electrolyte abnormalities. Lipase will be obtained to assess for pancreatitis. CT scan of the abdomen and pelvis will be obtained to assess for bowel obstruction and perforation. Lab Data Attestation: I reviewed the patient's lab results. Lab results narrative: CBC was reviewed and was within normal limits. Comprehensive metabolic profile was reviewed and was within normal limits. Lipase was reviewed and was mildly elevated at 128. Labs: Laboratory Results - last 24 hr 11/02/24 19:46 WBC 10.9 RBC 4.79 Hgb 14.4 Hct 42.1 MCV 87.9 MCH 30.1 MCHC 34.2 RDW Std Deviation 39.8 RDW Coeff of Jose Enrique 12.4 Plt Count 255 MPV 8.0 Immature Gran % (Auto) 0.400 Neut % (Auto) 72.2 H Lymph % (Auto) 15.9 L [place] % (Auto) 9.5 Eos % (Auto) 1.7 Baso % (Auto) 0.3 Absolute Neuts (auto) 7.9 H Absolute Lymphs (auto) 1.74 Nucleated RBC % 0 Sodium 138 Potassium 4.6 Chloride 100 Carbon Dioxide 27.6 Anion Gap 10 BUN 18 Creatinine 1.17 Estim Creat Clear Calc 92.98 Est GFR (MDRD) Non-Af 73 BUN/Creatinine Ratio 15.7 Glucose 93 Calcium 9.4 Total Bilirubin 0.45 AST 22 ALT 22 Alkaline Phosphatase 59 Total Protein 7.0 Albumin 4.0 Globulin 3.0 Albumin/Globulin Ratio 1.3 Lipase 128 H Radiography Diagnostic Testing: Clinical Impression(s) from Imaging Studies Abdomen/Pelvis CT 11/02/24 20:05 IMPRESSION: NO ACUTE FINDINGS AT THE ABDOMEN OR PELVIS ON NONCONTRAST CT. Reading Location: [facility] CT scan of the abdomen and pelvis was obtained. There is no free air or free fluid. There is no evidence of obstruction or perforation. This was interpreted by the radiologist was also independently reviewed by myself. Treatment and Re-Evaluation :: Patient was given IV fluids, morphine, and Zofran. Patient was advised of his findings. Patient is feeling better on reevaluation. Patient was instructed to start with a liquid diet and advance as tolerated. Patient was instructed to follow-up with his primary care physician in 5 to 7 days. Patient was given prescription for a short course of Percocet. Patient was instructed to return if worse in any way. Patient understood and was agreeable with the plan. All questions were answered. Discharge Plan Triage Chief Complaint: Abd Pain ED Provider: Jon Valdivia Dx/Rx/DC Orders Clinical Impression: Pancreatitis, Epigastric abdominal pain Instructions: ED Pancreatitis Prescriptions: Changed oxycodone-acetaminophen [Percocet] 5-325 mg tablet 1 tab PO Q6H PRN PRN (Reason: pain) 3 Days Qty: 12 0RF No Action lisinopril 30 mg tablet 30 mg PO DAILY Complex B-100 Tablet Extended Release 1 tab PO DAILY multivitamin Tablet 1 tab PO DAILY methylprednisolone [Medrol] 4 mg tablet See Rx Instructions .ROUTE .COMPLEX Qty: 40 0RF Rx Instructions: 4 mg orally ;Take 32 mg or 8 tablets the first day. Take 7 tablets of the 28 mg a second day. Take 6 tablets or 24 mg the third day.Take 5 tablets or 20 mg a day four. Take 16 mg or 4 tablets days 5 and 6. Take 8 mg or 2 tablets days 7 and 8. Take 4 mg or 1 tablet days 9 and 10 and then you are finished. Primary Care Provider: Venice Ruano Referrals: Venice Ruano, ANIYA-C [Primary Care Provider] - 5-7 Days Print Language: Kazakh Disposition Disposition: Home, Self Care Discharge Date/Time: 11/02/24 22:40
[2024-11-02 19:42] VITALS: BP 133/71; PULSE 80; RESP 18; O2SAT 97
[2024-11-02 19:52] LABS: Absolute Lymphocyte Count 1.74 X10^3/uL (0.83-4.51); Absolute Neutrophil Count 7.9 X10^3/uL (2.0-7.7); Basophil# 0.03 X10^3/uL; Basophil% 0.3 % (0-1); Eosinophil# 0.19 X10^3/uL; Eosinophils% 1.7 % (0-5); Hematocrit 42.1 % (40-54); Hemoglobin 14.4 g/dL (13.0-16.5); Lymphocyte # 1.74 X10^3/ul (0.83-4.51); Lymphocyte % 15.9 % (19-41); Mean Corp Hgb Conc 34.2 g/dL (32-36); Mean Corpuscular Hgb 30.1 pg (27.0-32.0); Mean Corpuscular Volume 87.9 fL (80-94); Monocyte# 1.04 X10^3/uL; Monocyte% 9.5 % (0-10); NRBC Flagged by Analyzer 0 % (0-5); Neutrophil % 72.2 % (47-70); Platelet Count 255 K/mm3 (150-450); RBC Distribution Width CV 12.4 % (11.6-14.6); RBC Distribution Width SD 39.8 fl (35.1-43.9); Red Blood Count 4.79 M/mm3 (4.6-6.2); White Blood Count 10.9 K/mm3 (4.4-11.0)
[2024-11-02] MEDS: 0.9% Normal Saline (1000mL) 1,000 ML 999 ML IV (20:02)
[2024-11-02] MEDS: Morphine 4 MG/ML Syringe IV (20:02)
[2024-11-02] MEDS: Ondansetron 4 MG/2 ML Vial IV (20:02)
--- NOTE | 2024-11-02 20:05 | CT_ITS ---
PROCEDURE: ABDOMEN/PELVIS WITHOUT CONT 11/02/2024 REASON FOR EXAM: PAIN TECHNIQUE: Abdomen and pelvis CT without intravenous contrast. Noncontrast technique limits evaluation of the abdominal and pelvic viscera. Coronal and Sagittal reconstruction series were provided. One or more dose reduction techniques were used (e.g., Automated exposure control, adjustment of the mA and/or kV according to patient size, use of iterative reconstruction technique). PATIENT PREPARATION: Per protocol ORAL CONTRAST TYPE: None. AMOUNT: mL COMPARISON: None FINDINGS: Lung bases: Unremarkable Liver: Tiny low attenuating lesion of the left hepatic lobe, too small to characterize. Gallbladder: The gallbladder is not clearly visualized, likely surgically absent, please correlate clinically. Spleen: Normal size. Pancreas: Normal size. No surrounding inflammation. Adrenals: Unremarkable Kidneys: No urolithiasis. No hydronephrosis. Bladder: Unremarkable Reproductive Organs: Unremarkable Bowel: Evaluation of the bowel loops are limited due to lack of oral contrast. The stomach is decompressed. No inflammatory changes of the small or large bowel. Appendix: Unremarkable Lymph nodes: Unremarkable. Vasculature: Mild diffuse atherosclerotic calcifications are noted. Peritoneum / Retroperitoneum: Unremarkable Bones: Unremarkable CT/Abdomen/Pelvis without Cont IMPRESSION: NO ACUTE FINDINGS AT THE ABDOMEN OR PELVIS ON NONCONTRAST CT. Reading Location: [facility]
[2024-11-02 20:30] LABS: Lipase 128 U/L (13-75)
[2024-11-02 20:41] LABS: ALB/GLOB Ratio 1.3 RATIO (0.9-2.4); AST(SGOT) 22 U/L (<=37); Alanine Aminotransfer ALT/SGPT 22 U/L (<=46); Alkaline Phosphatase 59 U/L (40-129); Anion Gap 10 (5-15); BUN 18 mg/dL (4-19); BUN/Creat Ratio 15.7 RATIO (10-20); Calcium,Total 9.4 mg/dL (7.6-11.0); Carbon Dioxide 27.6 mmol/L (21.0-32.0); Chloride 100 mmol/L (98-108); Creatinine, Serum 1.17 mg/dL (0.70-1.20); EST Glomerular Filtration Rate 73 (>60); Estimated Creatinine Clearance 92.98 ml/min (50-250); Glucose 93 mg/dL (70-99); Potassium 4.6 mmol/L (3.3-5.1); Sodium Level 138 mmol/L (133-145); Total Bilirubin 0.45 mg/dL (0.00-1.30)
[2024-11-02 21:39] VITALS: BP 112/65; PULSE 83; RESP 12; O2SAT 97
[2024-11-02 22:36] VITALS: BP 111/65; PULSE 96; RESP 18; TEMP 36.8; O2SAT 99
== END 2024-11-02 22:40 | disposition home or self-care (01) ==
PROVIDERS: Emergency Provider Emergency Medicine; PCP Nurse Practitioner Family; Visit Provider Emergency Medicine
DX: K85.90 Acute pancreatitis without necrosis or infection, unspecified (principal)
CPT/HCPCS: 74176; 80053; 83690; 85025; 96361; 96374; 96375; 96376; 99283; A4216; J2405